=== PATIENT | male | born 1945 | race Two or more races ===

== ENCOUNTER 2018-07-12 22:37 | Inpatient (IN) | payer BC, MEDICARE ==
[~2018-07-12] VITALS: Ht 165.1 cm; Wt 86.2 kg
[2018-07-13] MEDS ORDERED: TETANUS, DIPHTHERIA, PERTUSSIS VAC/PF 0.5ML (>7YR OLD) IM ONE
[2018-07-13] MEDS ORDERED: LIDOCAINE HCL/PF 1% 10 MG/ML 5ML VIAL IJ ONE
[2018-07-13] MEDS ORDERED: BACITRACIN ZINC OINT UDPKT TOP ONE
[2018-07-13 01:29] LABS: BASOPHILS % 0.2 % (0.0-2.0); EOSINOPHILS % 0.3 % (0.0-5.0); HEMATOCRIT. 37.8 % (42.0-52.0); HEMOGLOBIN. 12.5 g/dL (14.0-18.0); LYMPHOCYTES % 11.7 % (20.0-50.0); MEAN CORPUSCULAR VOLUME 87.6 fL (80.0-94.0); MEAN PLATELET VOLUME 10.2 fl (7.4-10.4); MONOCYTES % 6.5 % (2.0-8.0); NEUTROPHILS % 81.3 % (40.0-76.0); PLATELET 128 x1000/uL (130-400); RED BLOOD CELL COUNT 4.32 mill/uL (4.7-6.1)
[2018-07-13 01:32] LABS: CHLORIDE 106 mEq/L (98-107)
[2018-07-13 01:33] LABS: INR 1.2; PROTHROMBIN TIME 11.7 sec (9.1-11.1)
[2018-07-13] MEDS ORDERED: CLONIDINE 0.1MG TABLET PO PRN (04:15)
[2018-07-13] MEDS ORDERED: HYDROCODONE/ACETAMINOPHEN 5/325MG TABLET PO PRN (04:15)
[2018-07-13] MEDS ORDERED: ONDANSETRON HCL 4MG/2ML INJ IV PRN (04:15)
[2018-07-13] MEDS ORDERED: ACETAMINOPHEN 325MG TABLET PO PRN (04:15)
[2018-07-13] MEDS ORDERED: DOCUSATE SODIUM 100MG CAPSULE PO PRN (04:15)
[2018-07-13 06:23] LABS: CREATINE KINASE MB FRACTION 1.6 ng/mL (0.5-3.6)
[2018-07-13] MEDS ORDERED: ONDANSETRON 4MG ODT PO PRN (07:15)
[2018-07-13 09:00] VITALS: BP 133/67
[2018-07-13 09:50] VITALS: BP 133/67
[2018-07-13 13:10] VITALS: BP 122/60
[2018-07-13] MEDS: AMLODIPINE 10MG TABLET PO SCH (15:07)
[2018-07-13] MEDS ORDERED: GADOBENATE DIMEGLUMINE 529 MG/ML 10ML IV ONE (16:37)
[2018-07-13 17:10] VITALS: BP 105/64
[2018-07-13 20:00] VITALS: BP 111/73
[2018-07-13] MEDS ORDERED: NAPR-1176 PO (23:51)
[2018-07-13] MEDS ORDERED: DONE5TAB33 PO (23:51)
[2018-07-14 00:14] VITALS: BP 128/70
[2018-07-14 04:00] VITALS: BP 121/68
[2018-07-14 06:55] LABS: BASOPHILS % 0.3 % (0.0-2.0); EOSINOPHILS % 1.4 % (0.0-5.0); HEMATOCRIT. 41.4 % (42.0-52.0); HEMOGLOBIN. 13.9 g/dL (14.0-18.0); LYMPHOCYTES % 23.6 % (20.0-50.0); MEAN CORPUSCULAR HEMOGLOBIN 29.3 pg (28.0-32.0); MEAN CORPUSCULAR VOLUME 87.5 fL (80.0-94.0); MONOCYTES % 8.1 % (2.0-8.0); NEUTROPHILS % 66.6 % (40.0-76.0); PLATELET 133 x1000/uL (130-400); RED BLOOD CELL COUNT 4.73 mill/uL (4.7-6.1); RED CELL DISTRIBUTION WIDTH 14.8 % (11.6-14.6)
[2018-07-14 07:21] LABS: CHLORIDE 104 mEq/L (98-107)
[2018-07-14] MEDS: AMLODIPINE 10MG TABLET PO SCH (08:45)
[2018-07-14 08:53] VITALS: BP 127/63
[2018-07-14 12:32] VITALS: BP 102/55
[2018-07-14 16:23] VITALS: BP 106/58
[2018-07-14 19:57] VITALS: BP 108/65
[2018-07-14] MEDS: NEOMY SULF/BACITRAC ZN/POLY OINT 28GM TOP SCH (23:31)
[2018-07-15 03:52] VITALS: BP 108/65
[2018-07-15 08:17] VITALS: BP 113/61
[2018-07-15] MEDS: NEOMY SULF/BACITRAC ZN/POLY OINT 28GM TOP SCH ×2 (08:40→20:26)
[2018-07-15] MEDS: AMLODIPINE 10MG TABLET PO SCH (08:40)
[2018-07-15 13:08] VITALS: BP 107/59
[2018-07-15 16:52] VITALS: BP 108/58
[2018-07-15 20:00] VITALS: BP 122/97
[2018-07-16] VITALS (7 sets, daily range): BP systolic 95–120; BP diastolic 42–66
[2018-07-16] MEDS: NEOMY SULF/BACITRAC ZN/POLY OINT 28GM TOP SCH ×2 (08:52→20:17)
[2018-07-16] MEDS: AMLODIPINE 10MG TABLET PO SCH (08:59)
[2018-07-16] MEDS: LEVETIRACETAM 500MG TABLET PO SCH (20:23)
[2018-07-17] VITALS: BP 99/61
[2018-07-17 04:00] VITALS: BP 118/68
[2018-07-17 08:00] VITALS: BP 142/72
[2018-07-17] MEDS: AMLODIPINE 10MG TABLET PO SCH (08:31)
[2018-07-17] MEDS: LEVETIRACETAM 500MG TABLET PO SCH (08:31)
[2018-07-17] MEDS: NEOMY SULF/BACITRAC ZN/POLY OINT 28GM TOP SCH (08:31)
[2018-07-17 12:00] VITALS: BP 104/75
[2018-07-17 15:26] VITALS: BP 104/75
[2018-07-17 16:00] VITALS: BP 102/61
== END 2018-07-17 18:30 | disposition home health service (06) | DRG 154 ==
LOC: ER 22:37 → 6WST 07-13 00:49 → SUPCPDRO 07-13 04:07 → ENRESERV 07-13 07:13 → 6WST 07-13 09:31
PROVIDERS: ADMIT Hospitalist; ATTEND Hospitalist
PROC: 0HQ1XZZ Repair Face Skin, External Approach (ICD-10-PCS; principal; 2018-07-13)
DX: S02.2XXA Fracture of nasal bones, initial encounter for closed fracture (principal); S06.350A Traumatic hemorrhage of left cerebrum without loss of consciousness, initial encounter; M62.82 Rhabdomyolysis; G91.2 (Idiopathic) normal pressure hydrocephalus; R29.6 Repeated falls; F03.90 Unspecified dementia, unspecified severity, without behavioral disturbance, psychotic disturbance, mood disturbance, and anxiety; I10 Essential (primary) hypertension; J34.0 Abscess, furuncle and carbuncle of nose; D64.9 Anemia, unspecified; M47.812 Spondylosis without myelopathy or radiculopathy, cervical region; G40.909 Epilepsy, unspecified, not intractable, without status epilepticus; S01.21XA Laceration without foreign body of nose, initial encounter; W18.39XA Other fall on same level, initial encounter; Y93.89 Activity, other specified; Y92.89 Other specified places as the place of occurrence of the external cause; Y99.8 Other external cause status; Z82.49 Family history of ischemic heart disease and other diseases of the circulatory system; Z86.011 Personal history of benign neoplasm of the brain; Z86.73 Personal history of transient ischemic attack (TIA), and cerebral infarction without residual deficits; Z90.49 Acquired absence of other specified parts of digestive tract
CPT/HCPCS: 12011; 36415; 70450; 70486; 70544; 70553; 71045; 72125; 80053; 82550; 82553; 84484; 85025; 85610; 85730; 86850; 86900; 90471; 90715; 92610; 93005; 93970; 97163; 97166; 97535; 99285; A9577; J3490; L0172

== ENCOUNTER 2019-03-24 14:14 | Emergency (ER) | payer BC ==
[~2019-03-24] VITALS: Ht 172.7 cm; Wt 70.0 kg
[~2019-03-24 14:14] MED LIST: DONE5TAB33 PO; NAPR-1176 PO
[2019-03-24] MEDS ORDERED: SODIUM CHLORIDE 0.9% 1,000 ML IV ONE (14:40)
[2019-03-24 14:52] LABS: BASOPHILS % 1.2 % (0.0-2.0); EOSINOPHILS % 1.7 % (0.0-5.0); HEMOGLOBIN. 12.3 g/dL (14.0-18.0); LYMPHOCYTES % 30.7 % (20.0-50.0); MEAN CORPUSCULAR HEMOGLOBIN 29.4 pg (28.0-32.0); MEAN CORPUSCULAR VOLUME 88.6 fL (80.0-94.0); MEAN PLATELET VOLUME 9.9 fl (7.4-10.4); MONOCYTES % 8.7 % (2.0-8.0); NEUTROPHILS % 57.7 % (40.0-76.0); PLATELET 123 x1000/uL (130-400); RED BLOOD CELL COUNT 4.18 mill/uL (4.7-6.1); RED CELL DISTRIBUTION WIDTH 14.7 % (11.6-14.6)
[2019-03-24 14:59] LABS: CHLORIDE 110 mEq/L (98-107)
[2019-03-24 17:41] LABS: CLARITY URINE CLEAR (CLEAR); COLOR URINE DARK YELLOW (YELLOW); KETONES URINE NEGATIVE (NEGATIVE); LEUKOCYTE ESTERASE URINE NEGATIVE (NEGATIVE); NITRITE URINE NEGATIVE (NEGATIVE); OCCULT BLOOD URINE NEGATIVE (NEGATIVE); PROTEIN URINE NEGATIVE (NEGATIVE); SPECIFIC GRAVITY URINE 1.021 (1.005-1.030)
[2019-03-24 20:51] VITALS: BP 140/89
== END 2019-03-24 20:45 | disposition home or self-care (01) ==
LOC: ER 14:14
DX: E86.0 Dehydration (principal); R55 Syncope and collapse; E11.9 Type 2 diabetes mellitus without complications; E32.9 Disease of thymus, unspecified; Z90.89 Acquired absence of other organs; Z79.899 Other long term (current) drug therapy; F12.10 Cannabis abuse, uncomplicated
CPT/HCPCS: 36415; 71045; 80053; 81003; 83880; 84484; 85025; 93005; 96360; 96361; 99284; J7030